=== PATIENT | male | born 1985 | race Caucasian/White ===

== ENCOUNTER 2018-05-23 20:16 | Emergency (ER) | payer SELFPAY ==
[~2018-05-23] VITALS: Ht 170.2 cm; Wt 72.0 kg
[2018-05-23] MEDS ORDERED: HYDROCODONE/ACETAMINOPHEN 5/325MG TABLET PO ONE (21:00)
[2018-05-24 00:47] VITALS: BP 130/84
== END 2018-05-24 01:41 | disposition home or self-care (01) ==
LOC: ER 21:20
DX: S16.1XXA Strain of muscle, fascia and tendon at neck level, initial encounter (principal); M25.562 Pain in left knee; M54.9 Dorsalgia, unspecified; H53.8 Other visual disturbances; V89.2XXA Person injured in unspecified motor-vehicle accident, traffic, initial encounter; Y93.89 Activity, other specified; Y92.89 Other specified places as the place of occurrence of the external cause; Y99.8 Other external cause status
CPT/HCPCS: 29505; 70450; 72070; 72100; 72125; 73522; 73560; 99284; Z7610